=== PATIENT | female | born 1975 | race African-American/Black ===

== ENCOUNTER 2016-11-21 10:38 | Emergency (ER) | payer MEDICAID ==
[2016-11-21] MEDS ORDERED: TETRACAINE HCL 0.5% OPH SOLN 2 ML OD ONE (11:13)
--- NOTE | 2016-11-21 12:06 | ER Document Report ---
HPI - HPI Patient complains to provider of: RIGHT EYE PAIN Onset: Other Onset/Duration: Gradual Quality of pain: Burning Severity: Moderate Pain Level: 3 Context: Patient states eye has felt irritated since or Sunday of last week, denies drainage. Pain started yesterday with a feeling as if something is in it. Does have sensitivity to light. Patient does not wear contacts. Patient states she does have allergies and has dry eye which she does use drops for. Patient states she has had dry eye ever since she got superglue in her eyes several years ago. Associated Symptoms: None Exacerbated by: Other - Light and rubbing on a Relieved by: Denies Similar symptoms previously: Yes Recently seen / treated by doctor: No - ROS ROS below otherwise negative: Yes Systems Reviewed and Negative: Yes All other systems reviewed and negative - CONSTITUTIONAL Constitutional: DENIES: Fever - EENT EENT: REPORTS: Nasal Drainage-Clear, Eye problems. DENIES: Congestion Notes: Patient feels like something is in her right eye since yesterday. Has been having itching and burning since last or Sunday. - NEURO Neurology: DENIES: Headache - CARDIOVASCULAR Cardiovascular: DENIES: Chest pain - RESPIRATORY Respiratory: DENIES: Trouble Breathing - GASTROINTESTINAL Gastrointestinal: DENIES: Abdominal Pain - URINARY Urinary: DENIES: Dysuria - REPRODUCTIVE Reproductive: DENIES: : - MUSCULOSKELETAL Musculoskeletal: DENIES: Extremity pain - DERM Skin Color: Normal Skin Problems: None Past Medical History - General Information source: Patient - Social History Smoking Status: Former Smoker Chew tobacco use (# tins/day): No Frequency of alcohol use: Occasional Drug Abuse: None Lives with: Family Family History: Reviewed & Not Pertinent Patient has suicidal ideation: No Patient has homicidal ideation: No - Past Medical History Cardiac Medical History: Reports: Hx Hypertension Pulmonary Medical History: Reports: Hx Asthma Neurological Medical History: Reports: Hx Seizures - last 2006 Renal/ Medical History: Denies: Hx Peritoneal Dialysis Skin Medical History: Reports Hx Eczema Surgical Hx: Negative - Immunizations Immunizations up to date: Yes Hx Diphtheria, Pertussis, Tetanus Vaccination: Yes Vertical Provider Document - CONSTITUTIONAL Agree With Documented VS: Yes Exam Limitations: No Limitations General Appearance: WD/WN, No Apparent Distress - INFECTION CONTROL TRAVEL OUTSIDE OF THE [place] IN LAST 30 DAYS: No - HEENT HEENT: Atraumatic, Conjuctival Injection - Right eye, Normocephalic, PERRLA - EOMI Notes: Right eye anesthetized with tetracaine. Fluorescein instilled and flushed with normal saline. Small corneal abrasion noted to 1 o'clock position of right eye. No foreign body noted. Patient also has small papule underneath her right upper eyelid. - RESPIRATORY Respiratory: Breath Sounds Normal, No Respiratory Distress O2 Sat by Pulse Oximetry: 98 - CARDIOVASCULAR Cardiovascular: Regular Rate, Regular Rhythm - MUSCULOSKELETAL/EXTREMETIES Musculoskeletal/Extremeties: ZACKERY BHANDARI - NEURO Level of Consciousness: Awake, Alert, Appropriate - DERM Integumentary: Warm, Dry Course - Vital Signs Vital signs: Temp Pulse Resp BP Pulse Ox 98.3 F 77 16 155/106 H 98 11/21/16 10:43 11/21/16 10:43 11/21/16 10:43 11/21/16 10:43 11/21/16 10:43 Discharge - Discharge Clinical Impression: Right corneal abrasion Qualifiers: Encounter type: initial encounter Qualified Code(s): S05.01XA - Injury of conjunctiva and corneal abrasion without foreign body, right eye, initial encounter Condition: Good Disposition: HOME, SELF-CARE Instructions: Eyedrop Use ([facility]), Corneal Abrasion ([facility]) Additional Instructions: antibiotic eye drops as prescribed do not rub eyes use allergy drops for allergy symptoms once this resolves cool compresses follow up with your eye doctor for recheck and eye exam return as needed. Prescriptions: Polymyxin B Sulf/Trimethoprim [Polytrim Eye Drops] 10 ml OP QID #1 bottle
[2016-11-21 12:40] VITALS: BP 162/104
== END 2016-11-21 12:30 | disposition home or self-care (01) ==
LOC: ER 10:38
DX: S05.01XA Injury of conjunctiva and corneal abrasion without foreign body, right eye, initial encounter (principal); H57.11 Ocular pain, right eye; Z87.891 Personal history of nicotine dependence; X58.XXXA Exposure to other specified factors, initial encounter
CPT/HCPCS: 99283; J3490

== ENCOUNTER 2017-04-07 07:14 | Emergency (ER) | payer SELFPAY ==
[2017-04-07] MEDS ORDERED: ASPIRIN 81 MG TABLET, CHEWABLE PO ONE (07:51)
[2017-04-07] MEDS ORDERED: NITROGLYCERIN 2% OINTMENT 1 GM PACKET TP ONE (08:05)
--- NOTE | 2017-04-07 08:26 | ER Document Report ---
ED Cardiac - General Chief Complaint: Chest Pain Stated Complaint: CHEST PAIN Time Seen by Provider: 04/07/17 07:44 Mode of Arrival: Ambulatory Information source: Patient TRAVEL OUTSIDE OF THE [place] IN LAST 30 DAYS: No - HPI Patient complains to provider of: Chest pain - left sided Use of: Alcohol - occasional. denies: Amphetamines, Bath salts, Caffeine, Cocaine, Decongestants, Other Was the onset of pain: Sudden When did pain begin: 0630 this am Is the pain a: New problem Chest pain location: Pleuritic - left side vs superficial Quality of pain: Constant - ache, Intermittent - sharp with deep breath, Moderate Chest pain radiation location: denies: Left jaw, Left arm - but worsens with left arm movement and stretching, Left shoulder, Right jaw, Right arm, Right shoulder, Back, Neck, None Severity now: Moderate Pain level currently: 3 Chest pain precipitating factors: Coughing Cardiac risk factors: Hypertension, Smoker. denies: Diabetes, + Family history , Dyslipidemia, Hx CHF, Hx [place] Positive cardiac history: No Associated symptoms: denies: Abdominal pain, Anxiety, Back pain, Cool extremities, Diaphoresis, Dizziness, Edema, Fatigue, Fever/chills, Headache, Heartburn, Hypotension, Jaw pain, Lightheaded, Nausea/vomiting, Neck pain, Palpitations, Rash, Shortness of breath, Swelling/lump in chest, Syncope, Weakness, Other Exacerbated by: Activity - stretching/movements of left arm Relieved by: Other - not moving her trunk/arm Similar symptoms previously: No Recently seen / treated by doctor: No - Related Data Allergies/Adverse Reactions: No Known Allergies Allergy (Verified 04/07/17 07:20) Home Medications: Current Home Medications Lisinopril/Hydrochlorothiazide [Lisinopril-Hctz 20-25 mg Tab] 1 each PO DAILY [History] Past Medical History - General Information source: Patient - Social History Smoking Status: Current Every Day Smoker Family History: Reviewed & Not Pertinent - Past Medical History Cardiac Medical History: Reports: Hx Hypertension Pulmonary Medical History: Reports: Hx Asthma Neurological Medical History: Reports: Hx Seizures - last 2006 Renal/ Medical History: Denies: Hx Peritoneal Dialysis Skin Medical History: Reports Hx Eczema - Immunizations Immunizations up to date: Yes Hx Diphtheria, Pertussis, Tetanus Vaccination: Yes Review of Systems - Review of Systems Notes: REVIEW OF SYSTEMS: CONSTITUTIONAL : Denies fever, chills, or sweats. Denies recent illness. EENT: Denies eye, ear, throat, or mouth pain or symptoms. Denies nasal or sinus congestion or discharge. Denies throat, tongue, or mouth swelling or difficulty swallowing. CARDIOVASCULAR: Denies chest pain. Denies palpitations or racing or irregular heart beat. Denies ankle edema. RESPIRATORY: Denies cough, cold, or chest congestion. Denies shortness of breath, difficulty breathing, or wheezing. GASTROINTESTINAL: Denies abdominal pain or distention. Denies nausea, vomiting , or diarrhea. Denies blood in vomitus, stools, or per rectum. Denies black, tarry stools. Denies constipation. GENITOURINARY: Denies difficulty urinating, painful urination, burning, frequency, blood in urine, or discharge. MUSCULOSKELETAL: Denies back or neck pain or stiffness. Denies joint pain or swelling. SKIN: Denies rash, lesions or sores. NEUROLOGICAL: Denies confusion or altered mental status. Denies passing out or loss of consciousness. Denies dizziness or lightheadedness. Denies headache. Denies weakness or paralysis or loss of use of either side. Denies problems with gait or speech. Denies sensory loss, numbness, or tingling. Denies seizures. PSYCHIATRIC: Denies anxiety or stress. Denies depression, suicidal ideation, or homicidal ideation. ALL OTHER SYSTEMS REVIEWED AND NEGATIVE. Dictation was performed using [employer] voice recognition software Physical Exam - Vital signs Vitals: Temp Pulse Resp BP Pulse Ox 98.7 F 76 20 165/111 H 99 04/07/17 07:19 04/07/17 07:19 04/07/17 07:19 04/07/17 07:19 04/07/17 07:19 Notes: PHYSICAL EXAMINATION: GENERAL: Well-appearing, well-nourished and in no acute distress. HEAD: Atraumatic, normocephalic. EYES: Pupils equal round and reactive to light, extraocular movements intact, sclera anicteric, conjunctiva are normal. ENT: Nares patent and without discharge. oropharynx clear without exudates. No tonsilar hypertrophy or erythema. Moist mucous membranes. No sinus tenderness. NECK: Normal range of motion, supple without lymphadenopathy. no rigidity/ meningismus. Chest: no flail chest. equal rise and fall. + tenderness to palp of the chest wall left side. LUNGS: Breath sounds clear to auscultation bilaterally and equal. No wheezes rales or rhonchi. HEART: Regular rate and rhythm without murmurs, rubs, gallops. ABDOMEN: Soft, nontender, nondistended abdomen. No guarding, no rebound. No masses appreciated. Normal bowel sounds present. No CVA tenderness bilaterally. Musculoskeletal: Ext b/l: FROM to passive/active. Strength 5+/5. Uriel negative b/l. Extremities: No cyanosis, clubbing, or edema b/l. Peripheral pulses 2+. Capillary refill less than 3 seconds. NEUROLOGICAL: Cranial nerves grossly intact. Normal speech. Normal sensory, motor exams PSYCH: Normal mood, normal affect. SKIN: Warm, Dry, normal turgor, no rashes or lesions noted. Course - Re-evaluation Re-evalutation: 04/07/17 07:40 Pt is an afebrile, well-hydrated, 42yo female with a h/o HTN who presents to the ED with left sided chest pain. Pt is currently hypertensive 165/111. Cardiac work up is pending and aspirin was given PO. Nitro ointment placed. 04/07/17 09:22 CBC, CMP, CXR, EKG unremarkable for acute pathology at this time. BP as of 0830 : 159/104. Pt states that her pain has decreased, but still a little bit there. No other acute changes in symptoms or new concerns at this time. 04/07/17 11:41 Pt tolerating PO intake w/o difficulty. D-dimer negative. PERC score of 0 Heart score of 1 (low) BP 138/94 and HR 52 with O2 of 100% on RA 04/07/17 13:00 2nd cardiac enzymes negative. 2nd EKG negative. Vitals stable. No new concerns or complaints. Reviewed with Dr. Hernandez who is in agreement with discharge/plan Low suspicion/risk for any ACS, PE, pneumothorax, pericarditis, dissection, sepsis, meningitis, or other emergent systemic condition at this time. Pt is aware that her condition can changes from initial presentation and that she needs to monitor symptoms closely and seek medical attention with any acute changes. I will send her home with a short prescription for naproxen. Lidoderm patch applied today prior to discharge. Advised recheck with her PCM in 2-3 days. Return to the ED with any worsening/concerning symptoms otherwise as reviewed in discharge. Patient is in agreement. - Vital Signs Vital signs: Temp Pulse Resp BP Pulse Ox 98.1 F 76 13 138/94 H 100 04/07/17 12:02 04/07/17 07:19 04/07/17 11:01 04/07/17 11:00 04/07/17 11:01 - Laboratory Result Diagrams: 04/07/17 08:30 04/07/17 08:30 Laboratory results interpreted by me: 04/07/17 04/07/17 08:30 08:30 RDW 14.6 H Chloride 108 H Creatine Kinase 338 H Discharge - Discharge Clinical Impression: Chest pain, unspecified Qualifiers: Chest pain type: unspecified Qualified Code(s): R07.9 - Chest pain, unspecified Condition: Stable Disposition: HOME, SELF-CARE Instructions: Chest Wall Pain ([facility]), Chest Pain of Unclear Cause ([facility]), Ice Packs ([facility]), Warm Packs ([facility]), Family Physicians / Practices, Follow-Up Care ( [facility]) Additional Instructions: Rest, Ice Tylenol/ibuprofen as needed Light stretches daily Strength exercises as able Moist heat and massage may help F/u with your PCP in 2-3 days for a recheck and possible further evaluation with a stress test. Consider consult experiential therapist for ongoing/worsening symptoms. Return to the ED with any worsening symptoms and/or development of fever, headache, neck pain/stiffness, chest pain, palpitations, syncope, shortness of breath, trouble breathing, abdominal pain, n/v/d, blood in stool/urine, or other worsening symptoms that are concerning to you. Prescriptions: Naproxen 500 mg PO BID PRN #20 tablet PRN Reason: Forms: Elevated Blood Pressure Referrals: [facility] [Provider Group] - Follow up as needed CARDIOLOGY [Provider Group] - Follow up as needed
--- NOTE | 2017-04-07 08:28 | RADIOLOGY REPORT (SQ) ---
EXAM DESCRIPTION: CHEST SINGLE VIEW COMPLETED DATE/TIME: 04/07/2017 8:10 am REASON FOR STUDY: chest pain COMPARISON: 2012. NUMBER OF VIEWS: One view. TECHNIQUE: Single frontal radiographic view of the chest acquired. LIMITATIONS: None. FINDINGS: LUNGS AND PLEURA: No opacities, masses or pneumothorax. No pleural effusion. MEDIASTINUM AND HILAR STRUCTURES: No masses. Contour normal. HEART AND VASCULAR STRUCTURES: Heart normal in size. Normal vasculature. BONES: No acute findings. HARDWARE: None in the chest. OTHER: No other significant finding. IMPRESSION: NO SIGNIFICANT RADIOGRAPHIC FINDING IN THE CHEST. TECHNICAL DOCUMENTATION: JOB ID: [id number] [employer]- All Rights Reserved
[2017-04-07 08:47] LABS: ABSOLUTE EOSINOPHILS # (AUTO) 0.1 10^3/uL (0.0-0.6); ABSOLUTE LYMPHOCYTES (AUTO) 1.8 10^3/uL (0.5-4.7); ABSOLUTE MONOCYTES (AUTO) 0.5 10^3/uL (0.1-1.4); ABSOLUTE NEUT (AUTO) 2.2 10^3/uL (1.7-8.2); BASOPHILS % (AUTO) 0.6 % (0-2); HEMATOCRIT 40.3 % (36.0-47.0); HGB HCT DIFFERENCE -1.3; MEAN CORPUSCULAR HEMOGLOBIN 30.2 pg (27.0-33.4); MEAN CORPUSCULAR HGB CONC 32.2 g/dL (32.0-36.0); MEAN CORPUSCULAR VOLUME 94 fl (80-97); MONOCYTES % (AUTO) 10.5 % (3-13); RED CELL DISTRIBUTION WIDTH 14.6 % (11.5-14.0); SEGMENTED NEUTROPHILS % (AUTO) 48.9 % (42-78); WHITE BLOOD COUNT 4.6 10^3/uL (4.0-10.5)
[2017-04-07 09:01] LABS: ALANINE AMINOTRANSFERASE 25 U/L (9-52); ALKALINE PHOSPHATASE 77 U/L (38-126); ANION GAP 9 (5-19); ASPARTATE AMINO TRANSFERASE 25 U/L (14-36); BILIRUBIN,DIRECT 0.3 mg/dL (0.0-0.4); BILIRUBIN,TOTAL 0.4 mg/dL (0.2-1.3); BLOOD UREA NITROGEN 14 mg/dL (7-20); CALCIUM 9.3 mg/dL (8.4-10.2); CARBON DIOXIDE 23 mmol/L (22-30); CHLORIDE 108 mmol/L (98-107); CREATINE KINASE 338 U/L (30-135); CREATININE RESULT 0.82 mg/dL (0.52-1.25); GLUCOSE 90 mg/dL (75-110); POTASSIUM 4.1 mmol/L (3.6-5.0); SODIUM 140.4 mmol/L (137-145); TOTAL PROTEIN 6.9 g/dL (6.3-8.2)
[2017-04-07 09:13] LABS: CREATINE KINASE MB 2.87 ng/mL (<4.55)
[2017-04-07 09:20] LABS: TROPONIN I < 0.012 ng/mL
[2017-04-07] MEDS ORDERED: LIDOCAINE 5% (700 MG) TRANSDERMAL ADH..PATCH TP ONE (13:11)
[2017-04-07 13:20] VITALS: BP 168/104
--- NOTE | 2017-04-07 20:26 | EKG REPORT ---
SEVERITY:- BORDERLINE ECG - SINUS RHYTHM BORDERLINE T ABNORMALITIES, ANTERIOR LEADS : Confirmed by: Willy Saha MD 07-Apr-2017 20:25:19
--- NOTE | 2017-04-07 20:27 | EKG REPORT ---
SEVERITY:- BORDERLINE ECG - SINUS RHYTHM NONSPECIFIC ST-T CHANGES- INFERIOR LEADS : Confirmed by: Willy Saha MD 07-Apr-2017 20:26:11
== END 2017-04-07 13:34 | disposition home or self-care (01) ==
LOC: ER 07:14
DX: R07.9 Chest pain, unspecified (principal); I10 Essential (primary) hypertension; F17.200 Nicotine dependence, unspecified, uncomplicated
CPT/HCPCS: 36415; 71010; 80053; 82550; 82553; 84484; 85025; 85379; 93005; 93010; 99285

== ENCOUNTER 2018-11-05 11:18 | Emergency (ER) | payer MEDICAID ==
[2018-11-05] MEDS ORDERED: ASPIRIN 81 MG TABLET, CHEWABLE PO ONE (11:23)
[2018-11-05 11:36] LABS: ABSOLUTE EOSINOPHILS # (AUTO) 0.2 10^3/uL (0.0-0.6); ABSOLUTE LYMPHOCYTES (AUTO) 1.9 10^3/uL (0.5-4.7); ABSOLUTE MONOCYTES (AUTO) 0.4 10^3/uL (0.1-1.4); ABSOLUTE NEUT (AUTO) 1.5 10^3/uL (1.7-8.2); BASOPHILS % (AUTO) 0.6 % (0-2); HEMATOCRIT 42.3 % (36.0-47.0); LYMPHOCYTES % (AUTO) 46.5 % (13-45); MEAN CORPUSCULAR HEMOGLOBIN 29.5 pg (27.0-33.4); MEAN CORPUSCULAR VOLUME 90 fl (80-97); MONOCYTES % (AUTO) 10.3 % (3-13); PLATELET COUNT 224 10^3/uL (150-450); RED BLOOD COUNT 4.73 10^6/uL (3.72-5.28); RED CELL DISTRIBUTION WIDTH 15.8 % (11.5-14.0); SEGMENTED NEUTROPHILS % (AUTO) 37.6 % (42-78); TOTAL CELLS COUNTED % (AUTO) 100 %; WHITE BLOOD COUNT 4.1 10^3/uL (4.0-10.5)
[2018-11-05 11:56] LABS: ALANINE AMINOTRANSFERASE 27 U/L (9-52); ALBUMIN 4.1 g/dL (3.5-5.0); ALKALINE PHOSPHATASE 88 U/L (38-126); ANION GAP 7 (5-19); ASPARTATE AMINO TRANSFERASE 35 U/L (14-36); BILIRUBIN,DIRECT 0.2 mg/dL (0.0-0.4); BILIRUBIN,TOTAL 0.5 mg/dL (0.2-1.3); BLOOD UREA NITROGEN 16 mg/dL (7-20); CALCIUM 9.3 mg/dL (8.4-10.2); CARBON DIOXIDE 26 mmol/L (22-30); CHLORIDE 107 mmol/L (98-107); CREATINE KINASE 323 U/L (30-135); GLUCOSE 85 mg/dL (75-110); SODIUM 140.4 mmol/L (137-145); TOTAL PROTEIN 7.6 g/dL (6.3-8.2)
[2018-11-05 12:17] LABS: CREATINE KINASE MB 1.97 ng/mL (<4.55)
[2018-11-05 12:18] LABS: TROPONIN I < 0.012 ng/mL
--- NOTE | 2018-11-05 12:39 | RADIOLOGY REPORT (SQ) ---
EXAM DESCRIPTION: CHEST SINGLE VIEW COMPLETED DATE/TIME: 11/05/2018 12:16 pm REASON FOR STUDY: cp Chest pain COMPARISON: Chest films 10/26/2012, 04/07/2017 EXAM PARAMETERS: NUMBER OF VIEWS: One view. TECHNIQUE: Single frontal radiographic view of the chest acquired. RADIATION DOSE: NA LIMITATIONS: None. FINDINGS: LUNGS AND PLEURA: No opacities, masses or pneumothorax. No pleural effusion. MEDIASTINUM AND HILAR STRUCTURES: No masses. Contour normal. HEART AND VASCULAR STRUCTURES: Heart normal in size. Normal vasculature. BONES: No acute findings. HARDWARE: None in the chest. OTHER: No other significant finding. IMPRESSION: NO ACUTE RADIOGRAPHIC FINDING IN THE CHEST. TECHNICAL DOCUMENTATION: JOB ID: [id number] [employer]- All Rights Reserved Reading location - IP/workstation name: [email or web address]
--- NOTE | 2018-11-05 12:53 | ER Document Report ---
ED General - General Chief Complaint: Chest Pain Stated Complaint: CHEST PAIN Time Seen by Provider: 11/05/18 12:18 Notes: 43-year-old female with hypertension and asthma presents to the emergency department for chief complaint of chest pain since 9:00 this morning. She went to urgent care and then was brought in by ambulance from there to the emergency department. She describes the pain is constant and dull. She was seen here in fall 2017 for similar symptoms and had a negative cardiac workup, but she has had this type of pain a couple of times a week since then. More recently has been occurring every day. She says it is worse at rest or when laying on her left side and sharp, but she said it is better when she is "jogging" and does not hurt her. No recent illness, no shortness of breath, no diaphoresis, no nausea or vomiting, no other complaints. She received nitroglycerin sublingual x2 prior to arrival from EMS and aspirin. TRAVEL OUTSIDE OF THE [place] IN LAST 30 DAYS: No - Related Data Allergies/Adverse Reactions: No Known Allergies Allergy (Verified 04/07/17 07:20) Past Medical History - Social History Smoking Status: Current Every Day Smoker Chew tobacco use (# tins/day): No Drug Abuse: None Family History: Reviewed & Not Pertinent Patient has suicidal ideation: No Patient has homicidal ideation: No - Past Medical History Cardiac Medical History: Reports: Hx Hypertension Pulmonary Medical History: Reports: Hx Asthma Neurological Medical History: Reports: Hx Seizures - last 2006 Renal/ Medical History: Denies: Hx Peritoneal Dialysis Skin Medical History: Reports Hx Eczema - Immunizations Immunizations up to date: Yes Hx Diphtheria, Pertussis, Tetanus Vaccination: Yes Review of Systems - Review of Systems Constitutional: See HPI EENT: No symptoms reported Cardiovascular: See HPI Respiratory: See HPI Gastrointestinal: See HPI Genitourinary: No symptoms reported Female Genitourinary: No symptoms reported Musculoskeletal: No symptoms reported Skin: No symptoms reported Hematologic/Lymphatic: No symptoms reported Neurological/Psychological: No symptoms reported Physical Exam - Vital signs Vitals: Pulse Ox 100 11/05/18 11:23 - Notes Notes: PHYSICAL EXAMINATION: Reviewed vital signs and charting by RN GENERAL: Alert, interacts well. No acute distress. HEAD: Normocephalic, atraumatic. EYES: Pupils equal and round. Extraocular movements intact. ENT: Oral mucosa moist NECK: Full range of motion. Trachea midline. LUNGS: Clear to auscultation bilaterally, no wheezes, rales, or rhonchi. No re spiratory distress. HEART: Regular rate and rhythm. No murmur ABDOMEN: soft, non-tender. Non-distended. Bowel sounds present. no McBurney's point tenderness, no Lawton sign. EXTREMITIES: Moves all 4 extremities spontaneously. No edema, No cyanosis. Normal distal neurovascular exam BACK: No CVAT NEUROLOGIC: Oriented and appropriate. Normal speech. PSYCH: Normal affect, normal mood. SKIN: Warm, dry, normal turgor. No rashes or lesions noted. Course - Re-evaluation Re-evalutation: 11/05/18 12:50 Seen here in 2018 for similar symptoms but has had chronic chest pain since now considered acute on chronic. Patient blood pressure on registration 164/[id number]. Chest pain workup initiated. 11/05/18 13:48 Initial troponin negative. Heart score 1 for risk factors. Second troponin ordered. Patient is in no acute distress. 11/05/18 15:42 Second troponin negative. At this time patient is very low risk for ACS, PE, aortic dissection, aortic aneurysm. Unclear the etiology of her chest pain which she has a negative chest workup. I will give patient instructions with close follow-up for cardiology. She is safe and stable for discharge at this time. - Vital Signs Vital signs: Temp Pulse Resp BP Pulse Ox 7 L 136/115 H 100 11/05/18 14:27 11/05/18 14:27 11/05/18 14:27 - Laboratory Result Diagrams: 11/05/18 10:56 11/05/18 10:56 Laboratory results interpreted by me: 11/05/18 11/05/18 10:56 10:56 RDW 15.8 H Seg Neutrophils % 37.6 L Lymphocytes % 46.5 H Absolute Neutrophils 1.5 L Creatine Kinase 323 H Discharge - Discharge Clinical Impression: Chest pain Qualifiers: Chest pain type: unspecified Qualified Code(s): R07.9 - Chest pain, unspecified Condition: Good Disposition: HOME, SELF-CARE Additional Instructions: You were seen today for chest pain. The exact cause of your pain is unclear. However, based on your cardiac enzyme testing, chest x-ray, and EKG it does not appear that it is from an immediately life-threatening cause at this time. Although your testing here is normal is critical that you follow-up with your primary care physician for continued evaluation of this chest pain and possible stress testing. I recommended you see your physician within the next 24-48 hours to be evaluated for consideration of a stress test. Please return to emergency department immediately if you have worsening of your chest pain, shortness of breath, vomiting, become unable to exert yourself due to pain or difficulty breathing, you pass out, or have any pain that radiates into your arms, jaw, or back. Please also return if you have any additional symptoms that are concerning to you. Referrals: LORI TRIPLETT MD [ACTIVE STAFF] - Follow up as needed
[2018-11-05 16:08] VITALS: BP 147/106
--- NOTE | 2018-11-06 00:07 | EKG REPORT ---
SEVERITY:- ABNORMAL ECG - SINUS RHYTHM ABNRM R PROG, CONSIDER ASMI OR LEAD PLACEMENT BORDERLINE T ABNORMALITIES, DIFFUSE LEADS : Confirmed by: Rosey Greenfield 06-Nov-2018 00:07:03
== END 2018-11-05 16:08 | disposition home or self-care (01) ==
LOC: ER 11:18
DX: R07.9 Chest pain, unspecified (principal); F17.200 Nicotine dependence, unspecified, uncomplicated; I10 Essential (primary) hypertension
CPT/HCPCS: 36415; 71045; 80053; 82550; 82553; 84484; 85025; 93005; 93010; 99284

== ENCOUNTER 2019-04-29 12:47 | Emergency (ER) | payer MEDICAID ==
--- NOTE | 2019-04-29 13:48 | ER Document Report ---
ED Medical Screen (RME) - General Chief Complaint: Psych Problem Stated Complaint: EMERGENCY MENTAL STATE Time Seen by Provider: 04/29/19 13:40 Mode of Arrival: Ambulatory Information source: Patient Notes: 44-year-old female presented to ED for traumatic experience this past week. She states she feels like she was molested by the police in the street. She states she was not actually molested but this way she feels. She states she has been having paranoia difficulty breathing difficulty sleeping difficulty eating. She states she is having panic attacks constantly. She states she just cannot get a software project lead on things and she needs to speak with someone she needs a referral for someone. She states she smokes about 7 cigarettes drinks on the weekends smokes pot and lives with her child. She works at [employer]. She does have a history of high blood pressure. She is alert and oriented respirations regular and unlabored at this time. I have greeted and performed a rapid initial assessment of this patient. A comprehensive ED assessment and evaluation of the patient, analysis of test results and completion of medical decision making process will be conducted by an additional ED providers. TRAVEL OUTSIDE OF THE [place] IN LAST 30 DAYS: No - Related Data Allergies/Adverse Reactions: No Known Allergies Allergy (Verified 04/29/19 13:33) Past Medical History - Past Medical History Cardiac Medical History: Reports: Hx Hypertension Pulmonary Medical History: Reports: Hx Asthma Neurological Medical History: Reports: Hx Seizures - last 2006 Renal/ Medical History: Denies: Hx Peritoneal Dialysis Skin Medical History: Reports Hx Eczema - Immunizations Immunizations up to date: Yes Hx Diphtheria, Pertussis, Tetanus Vaccination: Yes Physical Exam - Vital signs Vitals: Temp Pulse Resp BP Pulse Ox 98.4 F 76 18 147/97 H 96 04/29/19 13:11 04/29/19 13:11 04/29/19 13:11 04/29/19 13:11 04/29/19 13:11 Course - Vital Signs Vital signs: Temp Pulse Resp BP Pulse Ox 98.4 F 76 18 147/97 H 96 04/29/19 13:11 04/29/19 13:11 04/29/19 13:11 04/29/19 13:11 04/29/19 13:11
--- NOTE | 2019-04-29 15:05 | ER Document Report ---
ED Psych Disorder / Suicide - General Mode of Arrival: Ambulatory TRAVEL OUTSIDE OF THE [place] IN LAST 30 DAYS: No - General Chief Complaint: Anxiety Stated Complaint: EMERGENCY MENTAL STATE Time Seen by Provider: 04/29/19 13:40 Primary Care Provider: [facility] [Outside] - Follow up as needed [facility] [Outside] - 04/30/19 8:00 am Notes: Patient is a 44-year-old female who presents emergency department with a chief complaint of anxiety and paranoia. Patient is stating that she would like a referral to speak with mental health. About a week ago she states that there was an incident with the police and ever since then she has felt paranoid. She has a past medical history of asthma, hypertension and is currently on an albuterol inhaler as needed and amlodipine. (VICENTE BARRAZA) - Related Data Allergies/Adverse Reactions: No Known Allergies Allergy (Verified 04/29/19 13:33) Past Medical History - General Information source: Patient - Social History Smoking Status: Never Smoker Chew tobacco use (# tins/day): No Drug Abuse: None Family History: Reviewed & Not Pertinent Patient has suicidal ideation: No Patient has homicidal ideation: No - Past Medical History Cardiac Medical History: Reports: Hx Hypertension Pulmonary Medical History: Reports: Hx Asthma Neurological Medical History: Reports: Hx Seizures - last 2006 Renal/ Medical History: Denies: Hx Peritoneal Dialysis Skin Medical History: Reports Hx Eczema - Immunizations Immunizations up to date: Yes Hx Diphtheria, Pertussis, Tetanus Vaccination: Yes Review of Systems - Review of Systems Notes: REVIEW OF SYSTEMS: CONSTITUTIONAL : Denies recent illness. Denies recent unintentional weight loss. Denies fever, chills, or sweats. EENT: Denies eye, ear, throat, or mouth pain, discharge, or symptoms. Denies nasal or sinus congestion. CARDIOVASCULAR: Denies chest pain. RESPIRATORY: Denies shortness of breath, cough, congestion, difficulty breathing, or wheezing. GASTROINTESTINAL: Denies nausea, vomiting, and diarrhea. Denies abdominal pain. Denies constipation. GENITOURINARY: Denies difficulty urinating, burning, blood in urine, urgency or frequency. MUSCULOSKELETAL: Denies neck and back pain. Denies joint pain or swelling. SKIN: Denies rash, itchiness, or lesions HEMATOLOGIC : Denies easy bruising or bleeding. LYMPHATIC: Denies swollen, painful, enlarged glands. NEUROLOGICAL: Denies no numbness or tingling denies weakness. Denies headache. Denies altered mental status. Denies alteration in speech. PSYCHIATRIC: See HPI. All other systems reviewed and negative. (VICENTE BARRAZA) Physical Exam - Vital signs Vitals: Temp Pulse Resp BP Pulse Ox 98.4 F 76 18 147/97 H 96 04/29/19 13:11 04/29/19 13:11 04/29/19 13:11 04/29/19 13:11 04/29/19 13:11 - Notes Notes: PHYSICAL EXAMINATION: GENERAL: Appears well, healthy, well-nourished, no acute distress. HEAD: Normocephalic, atraumatic. EYES: PERRL, conjunctiva normal, all extraocular movements intact, sclera nonicteric ENT: Moist mucous membranes. NECK: Supple, no noticeable swelling, redness, rash. Normal range of motion. LUNGS: Equal breath sounds bilaterally and clear to auscultation. No wheezes rales or rhonchi. CARDIOVASCULAR: S1-S2, regular rate, regular rhythm. Radial pulses 2+, normal. ABDOMEN: Normoactive bowel sounds. Soft, nontender, no guarding, no rebound tenderness, and no masses palpated. EXTREMITIES: Normal strength and range of motion, no pitting or edema. No cyanosis. NEUROLOGICAL: Moves all extremities upon command. Strength 5/5 in all extremities. PSYCH: Appears anxious. SKIN: Warm, dry. No rash, lesions, ulcerations noted. Normal skin turgor. (VICENTE BARRAZA) Course - Laboratory Result Diagrams: 04/29/19 17:00 04/29/19 17:00 - Re-evaluation Re-evalutation: 04/29/19 17:11 Patient has been cleared for discharge by [facility]. Awaiting lab results. 04/29/19 17:53 Hematology and chemistries are unremarkable. Patient's urine is normal. Urine analysis is normal. Toxicology is normal except for marijuana. Patient will follow-up with counseling outpatient. 04/29/19 18:02 Patient refused her EKG. Follow-up precautions were given. Verbal discharge instructions were given to the patient. They verbalized understanding. They are stable for discharge. (VICENTE BARRAZA) - Vital Signs Vital signs: Temp Pulse Resp BP Pulse Ox 98.4 F 76 18 147/97 H 96 04/29/19 13:11 04/29/19 13:11 04/29/19 13:11 04/29/19 13:11 04/29/19 13:11 - Laboratory Laboratory results interpreted by me: 04/29/19 04/29/19 17:00 17:00 Hgb 11.9 L RDW 14.1 H Lymph % (Auto) 10.6 L Seg Neutrophils % 82.6 H Acetaminophen < 10 L Discharge - Discharge Clinical Impression: Anxiety, Paranoia, Marijuana use Condition: Stable Disposition: HOME, SELF-CARE Instructions: Anxiety ([facility]) Additional Instructions: You have been evaluated by both medical and behavioral health providers while in the emergency department. You have been cleared from both acute medical and psychiatric services. Stress increases anxiety which can interfere with sleeping, eating, cause ruminating thoughts which can then lead to paranoia and other psychosis. You have been provided the outpatient mental health resource sheet and encouraged to follow up with services for ongoing care and treatment. Anxiety The physician feels that some of your health problems are being caused by anxiety. Anxiety affects your health in many ways. Anxiety alone can cause palpitations, sweats, chest pains, abdominal pains, shortness of breath, and headaches. It contributes to ulcer disease, high blood pressure, irritable bowel syndrome, and has been shown to cause flare-ups of many other diseases. Anxiety is not a simple disorder to treat. If the anxiety is due to recent life stresses, you may simply need time to "work through" the changes. If the anxiety is due to an underlying unhappiness with yourself or due to psychiatric disturbance, professional help will be needed. Your physician can refer you for further help if needed. Anti-anxiety medication is occasionally given if the stress is acute or if you are having trouble sleeping. Chronic or frequent use of these medications is not a good idea because the body becomes reliant on it, preventing you from dealing with life's normal stresses. Altered Mental Status (paranoia) An altered mental status is a change in the normal functioning of the brain. This alteration of function can range from minor decreased brain function with some forgetfulness and confusion to complete loss of consciousness and coma. There are many possible causes of an altered mental status and include brain injuries such as trauma or strokes, problems with oxygen supply to the brain, fever and infections of the brain and/or elsewhere in the body, metabolic abnormalities such as low or high blood sugar, overdoses or excessive medication ingestion, and mental and psychiatric illnesses. Sometimes the altered mental status resolves and a definite cause is not determined. If a cause for your altered mental status was found, it has likely been corrected. Your evaluation has not shown any condition that requires that you be admitted to the hospital. It is believed that you are safe to leave and return to your home. If you have a return of your symptoms, you should return for re-evaluation. Please stop your marijuana use. Follow-Up Plan: You have been encouraged to follow up with [facility] as a walk in (can walk in Sunday-Sunday 8:00AM-4:30PM) and should do so tomorrow (04/30/19) morning. You have also been provided the [facility] Mobile Crisis number for crisis, talk therapy and linkage to other services/supports. If your symptoms persist or worsen you should contact your physician immediately, utilize mobile crisis or return to the emergency department. Referrals: [facility] Crisis [facility] [Outside] - Follow up as needed [facility] [Outside] - 04/30/19 8:00 am
[2019-04-29 15:48] LABS: APPEARANCE,URINE CLEAR; BILIRUBIN,URINE NEGATIVE (NEGATIVE); COLOR,URINE YELLOW; GLUCOSE, URINE NEGATIVE (NEGATIVE); KETONES,URINE NEGATIVE (NEGATIVE); LEUKOCYTE ESTERASE,URINE NEGATIVE (NEGATIVE); NITRITE,URINE NEGATIVE (NEGATIVE); PROTEIN,URINE NEGATIVE (NEGATIVE); URINE SPECIFIC GRAVITY 1.017; UROBILINOGEN,URINE NEGATIVE mg/dL (<2.0)
[2019-04-29 16:01] LABS: URINE AMPHETAMINES SCREEN NEGATIVE; URINE BARBITURATES SCREEN NEGATIVE; URINE BENZODIAZEPINES SCREEN NEGATIVE; URINE COCAINE SCREEN NEGATIVE; URINE MARIJUANA (THC) SCREEN UNCONFIRMED POSITIVE; URINE METHADONE SCREEN NEGATIVE; URINE PHENCYCLIDINE SCREEN NEGATIVE
[2019-04-29 17:30] LABS: ABSOLUTE MONOCYTES (AUTO) 0.6 10^3/uL (0.1-1.4); ABSOLUTE NEUT (AUTO) 8.1 10^3/uL (1.7-8.2); BASOPHILS % (AUTO) 0.2 % (0-2); HEMOGLOBIN 11.9 g/dL (12.0-15.5); LYMPHOCYTES % (AUTO) 10.6 % (13-45); MEAN CORPUSCULAR HEMOGLOBIN 30.9 pg (27.0-33.4); MEAN CORPUSCULAR VOLUME 94 fl (80-97); MONOCYTES % (AUTO) 6.6 % (3-13); PLATELET COUNT 310 10^3/uL (150-450); RED BLOOD COUNT 3.85 10^6/uL (3.72-5.28); RED CELL DISTRIBUTION WIDTH 14.1 % (11.5-14.0); SEGMENTED NEUTROPHILS % (AUTO) 82.6 % (42-78); TOTAL CELLS COUNTED % (AUTO) 100 %; WHITE BLOOD COUNT 9.8 10^3/uL (4.0-10.5)
[2019-04-29 17:49] LABS: ALBUMIN 4.5 g/dL (3.5-5.0); ALKALINE PHOSPHATASE 91 U/L (38-126); ANION GAP 9 (5-19); ASPARTATE AMINO TRANSFERASE 30 U/L (14-36); BILIRUBIN,DIRECT 0.1 mg/dL (0.0-0.4); BILIRUBIN,TOTAL 0.3 mg/dL (0.2-1.3); BLOOD UREA NITROGEN 16 mg/dL (7-20); CALCIUM 9.8 mg/dL (8.4-10.2); CARBON DIOXIDE 26 mmol/L (22-30); CHLORIDE 104 mmol/L (98-107); GLUCOSE 105 mg/dL (75-110); POTASSIUM 4.1 mmol/L (3.6-5.0); SALICYLATE 6.5 mg/dL (2.0-20.0)
[2019-04-29 17:50] LABS: ACETAMINOPHEN < 10 ug/mL (10-30); ALCOHOL < 10 mg/dL (NONE DETECTED)
[2019-04-29 18:16] VITALS: BP 139/91
== END 2019-04-29 18:00 | disposition home or self-care (01) ==
LOC: ER 12:47
DX: F41.9 Anxiety disorder, unspecified (principal); F22 Delusional disorders; J45.909 Unspecified asthma, uncomplicated; I10 Essential (primary) hypertension; Z79.899 Other long term (current) drug therapy
CPT/HCPCS: 36415; 80053; 80307; 81001; 85025; 99284

== ENCOUNTER 2020-02-29 20:10 | Emergency (ER) | payer OTHER, MEDICAID ==
[2020-02-29 20:24] VITALS: BP 130/87
== END 2020-02-29 21:10 | disposition left against medical advice (07) ==
LOC: ER 20:10
DX: Z53.21 Procedure and treatment not carried out due to patient leaving prior to being seen by health care provider (principal)